=== PATIENT | female | born 1960 | race Caucasian/White ===

== ENCOUNTER 2024-03-18 23:13 | Inpatient (IN) | payer MEDICARE, OTHER, SELFPAY ==
[2024-03-18 20:17] VITALS: BP 92/58; BMI 27.7
[2024-03-18 20:41] LABS: Hematocrit 39.2 % (37.0-47.0); Hemoglobin 13.7 g/dL (12.0-16.0); Mean Corp Hgb Conc. 34.9 g/dL (33.0-37.0); Mean Corpuscular Hgb 31.7 pg (27.0-31.0); Mean Corpuscular Volume 90.7 fL (81.0-99.0); Mean Platelet Volume 9.7 fL (7.4-10.4); Platelet Count 221 10^3/uL (130-400); Red Blood Cell Count 4.32 10^6/uL (4.20-5.40); Red Cell Dist. Width 12.5 % (11.5-14.5); White Blood Cell Count 5.8 10^3/uL (4.8-10.8)
[2024-03-18 20:57] LABS: ALT (SGPT) 105 U/L (0-35); AST (SGOT) 188 U/L (14-36); Albumin 4.3 g/dl (3.5-5.0); Alkaline Phosphatase 120 U/L (38-126); Blood Urea Nitrogen 16 mg/dl (7-17); Calcium 9.5 mg/dl (8.4-10.2); Carbon Dioxide 25 mmol/L (22-30); Chloride 104 mmol/L (98-107); Estimated Creatinine Clearance 85 ml/min; Glucose 130 mg/dl (70-99); Sodium 137 mmol/L (135-145); Total Protein 6.8 g/dl (6.3-8.2); eGFR > 60.00
[2024-03-18 21:00] VITALS: BP 113/58
[2024-03-18 21:00] LABS: Alcohol None Detected
--- NOTE | 2024-03-18 21:00 | ED.GENMED ---
History of Present Illness
General
Chief Complaint: Fainting/Passed Out
Source: patient, spouse and ambulance crew
Exam Limitations: none
Time Seen by Provider: 03/18/24 20:38
Nursing documentation reviewed up to this point in time: agreed with
Travel History
Have you had any contact with someone who has COVID-19?: No
Do you have any symptoms of coronavirus? Fever > 100 degrees, chills, cough, shortness of breath, sore throat, loss of taste or smell, muscle aches, or headache?: No
History of Present Illness
History of Present Illness:
63-year-old female presents emergency department due to an onset of sharp epigastric pain radiating to her mid back. She then had a syncope episode, threw up twice and was sweaty.
Past History
Past History
ED Past Medical History: CAD, GERD and Other (Fainting episodes)
ED Past Surgical History: None
Social History
Tobacco: Former smoker
Alcohol: Occasional
Drug: None
Personal:
Living: with family
Review of Systems
Review of Systems
Allergies reviewed?: Yes
All Other Systems: Not applicable
Constitutional: Reports no symptoms
EENT: Reports no symptoms
Respiratory: Reports no symptoms
Cardiac: Reports syncope
ABD/GI: Reports abdominal pain and vomiting
: Reports no symptoms
Musculoskeletal: Reports no symptoms
Skin: Reports no symptoms
Neurological: Reports no symptoms
Endocrine: Reports no symptoms
Hematologic/Lymphatic: Reports no symptoms
Psychiatric: Reports no symptoms
Phy Exam
Physical Exam
Physical Exam:
Physical Exam
General: no apparent distress, not acutely ill
Neck: supple. no meningeal signs. normal posterior pharynx
Heart: s1/s2 regular rate and rhythm, no murmur. equal radial
pulses.
HEENT: Pupils equal round reactive to light, EOMI
Lungs: no acute respiratory distress. clear bilaterally
Abdomen: normal bowel sounds. Epigastric and right upper quadrant tenderness. no CVAT
Neuro: alert and oriented. no focal neurological deficits cranial nerves II through XII intact
Skin: no rash
Psychiatric: well kept. interactive and cooperative
Extremities: no edema. no calf tenderness. negative homans. good distal pulses
Course
Orders/Labs/Results
Orders:
Orders
03/18/24 20:16
EKG [Electrocardiogram (*1)] Urgent
Reason for Study: Syncope
03/18/24 20:17
EKG- Treatment ONCE
03/18/24 20:35
Alcohol Urgent
Complete Blood Count/No Diff Urgent
Comprehensive Metabolic Panel Urgent
Lipase Urgent
Comment: ADD ON
Troponin I Urgent
03/18/24 20:57
0.9% Sodium Chloride 1000 ml [Nss] 1,000 ml IV BOLUS
03/18/24 20:59
Add On- LAB Urgent
Tests Added?: lipase
US Abdomen Complete/Upper Urgent
Comment:
Reason For Exam: epigastric pain, vomiting
03/18/24 22:43
Ondansetron Injectable [Zofran] 4 mg IV NOW STA
03/18/24 22:50
Aztreonam [Azactam] 2,000 mg IV NOW STA
HYDROmorphone [Dilaudid] 0.5 mg IV NOW STA
MetroNIDAZOLE 500 MG/100 ML [Flagyl 500 mg] 100 ml IV NOW
03/18/24 22:56
Sterile Water [Sterile Water For Injection] 10 ml .ROUTE .[facility]
03/18/24 23:05
Vancomycin [Vancocin] 1,500 mg 0.9% Sodium Chloride [Nss] 20 ml 0.9% Sodium Chloride 250 ml [Nss] 250 ml IV NOW
03/18/24 23:12
0.9% Sodium Chloride 500 ml [Nss] 500 ml IV BOLUS
03/18/24 23:13
Admit/Transfer Patient As Directed
Co-Sign Provider:
Level of Care: Inpatient admission
Assign to:: Medical/Surgical
Physician / Group: Hospitalist
Diagnosis: Acute pancreatitis
Reason for Hospitalization: Acute pancreatitis
Expected length of stay greater than two midnights?: Yes
ELOS- Estimated Length of Stay in days: 3
I certify the patient meets the requirements for IP care: Yes
03/18/24 23:14
Code Status As Directed
Resuscitation Status: Full Code
03/18/24 23:15
0.9% Sodium Chloride 1000 ml [Nss] 1,000 ml IV 150 mls/hr
03/18/24 23:19
Add On- LAB Stat
Tests Added?: Lipids
03/18/24 23:26
Metoclopramide [Reglan] 5 mg IV Q8HPRN PRN
03/18/24 23:28
Add On- LAB Stat
Tests Added?: HEpB core Ag, hepB surf Ag, HepB surf Ab, HEpC Ab
Abnormal Lab Results
03/18/24
20:35
MCH 31.7 H pg
(27.0-31.0)
Glucose 130 H mg/dl
(70-99)
AST 188 H U/L
(14-36)
ALT 105 H U/L
(0-35)
Lipase 362 H U/L
(23-300)
03/18/24 20:35
03/18/24 20:35
Vital Signs
Initial and Last Documented VS:
Initial Vital Signs
Temp Pulse Resp BP Pulse Ox
97.7 F 61 12 92/58 95
03/18/24 20:17 03/18/24 20:17 03/18/24 20:17 03/18/24 20:17 03/18/24 20:17
Last Documented Vital Signs
Temp Pulse Resp BP Pulse Ox
97.7 F 59 15 112/66 95
03/18/24 20:17 03/18/24 21:15 03/18/24 21:15 03/18/24 21:13 03/18/24 21:31
MDM/Problems Addressed
Differential Diagnosis Includes:
Pancreatitis, biliary obstruction 4 viral female with pancreatitis, likely due to biliary obstruction. Admit to hospitalist. Azactam., vancomycin and metronidazole given due to patient's allergies. Patient with syncope episode, suspect vasovagal
cause.
Chronic conditions affecting care: CAD
Acute Exacerbation and/or Progression of Chronic Illness: CAD
*Radiology
Radiology exam reviewed: radiology read reviewed (Ultrasound shows severe dilation of intrahepatic biliary duct)
*Pulse Oximetry
Patient hypoxic: no
*EKG
Interpreted by ED Provider?: Yes
EKG Intrepretation Date: 03/18/24
EKG Intrepretation Time: 20:28
Interpretation: abnormal
Comparison EKG: no comparison EKG present
Heart Rate: 55
Rate: bradycardiac
Rhythm: sinus
[place]: normal axis
Interval: normal interval
QRS Pattern: normal QRS
Ischemia: no ischemia
*Core Mounter Interpretation
Rate: bradycardiac
Interpretation: abnormal
Heart Rate: 56
Rhythm: sinus
*Critical Care Note
Total Time (30-74mins, 75-104mins- exclusive of procedures): Not Applicable
Patient Management
Social determinants of health affecting care: Living situation
Discussion with other providers: Hospitalist
Escalation/DeEscalation of care consider admission/obs:
admit indicated
ED Attending Note
-
Portions of this chart may have been created with voice recognition software.� Occasional wrong word or��sound alike� substitutions may have occurred due to the inherent limitations of voice recognition software.
Discharge Plan
Departure
Patient Disposition: Admit
Date of Disposition: 03/18/24
Time of Disposition: 22:43
Admit to: IMU
Presentation/result/management discussed w/ accepting MD/DO: Hospitalist
Patient with high blood pressure during this ER visit?: No
Condition: Fair
Discharge Problem:
Pancreatitis due to biliary obstruction
Prescriptions:
No Action
atorvastatin 40 mg Tablet
40 mg PO HS
cholecalciferol (vitamin D3) [Vitamin D3] 25 mcg (1,000 unit) Tablet
25 mcg PO DAILY
calcium carbonate 500 mg calcium (1,250 mg) tablet
500 mg PO DAILY
omega-3 acid ethyl esters 1 gram capsule
1 g PO BID
estradiol [Yuvafem] 10 mcg tablet
10 mcg VAGINAL MOTH
Referrals:
PRIVATE,PHYSICIAN [Family Provider] -
Interventions
Interventions:
*Risk Screen - Suicide Last Done: 03/18/24 20:17
*General Assessment Last Done: 03/18/24 20:17
*Neglect/Abuse Screening Last Done: 03/18/24 20:17
*ED COVID-19 Vaccine History Last Done: 03/18/24 20:17
ED- Cardiac Assessment Last Done: 03/18/24 20:33
ED- Neurological Assessment Last Done: 03/18/24 20:33
Discharge Date and Time
Print Language: VINCENTIAN
[2024-03-18] MEDS: NSS 1000 IV (21:05)
[2024-03-18 21:08] LABS: Troponin I < 0.012 ng/ml
[2024-03-18 21:13] VITALS: BP 112/66
[2024-03-18 21:16] LABS: Lipase 362 U/L (23-300)
[2024-03-18] MEDS: ZOFRAN 4 MG IV (22:49)
[2024-03-18] MEDS: DILAUDID 0.5 MG IV (22:59)
[2024-03-18] MEDS: FLAGYL 500 MG 100 IV (23:04)
[2024-03-18] MEDS: AZACTAM 2000 MG IV (23:04)
--- NOTE | 2024-03-18 23:20 | HPS.HSE ---
Family Physician
-
Family Physician: PHYSICIAN PRIVATE
Chief Complaint
-
abdominal pain, nausea, vomiting
History of Present Illness
63F with PMHx of HLD came with acute epigastric pain with sudden onset radiating to the back. Patient was on wedding today and had some alcohol before onset of the symptoms. SHe is not a daily drinker. US showed intra and extrahepatic ducts dilation
with s/p cholecystectomy and elevated lipase on labs
Medical History
Past Medical History
Past Medical History: Reports Other
Additional Past Medical History:
See HPI
Past Surgical History: Reports Other
Additional Past Surgical History:
See HPI
Social History
Tobacco: Non-smoker
Alcohol: Occasional
Drug: None
Family History
Family History: Not pertinent
Allergies / Home Medications
Allergies reflects when Allergies were last updated in [employer].
Home Medications with original date entered in [employer]
Allergy/Medication List:
Allergies
Allergy/AdvReac Type Severity Reaction Status Date / Time
adhesive Allergy Rash Verified 03/18/24 20:29
amoxicillin [From Augmentin] Allergy Itching Verified 03/18/24 20:29
ciprofloxacin [From Cipro] Allergy Rash Verified 03/18/24 20:29
clavulanic acid Allergy Itching Verified 03/18/24 20:29
[From Augmentin]
Home Medications
atorvastatin 40 mg tablet 40 mg PO HS 03/18/24
calcium carbonate 500 mg PO DAILY 03/18/24
cholecalciferol (vitamin D3) 25 mcg (1,000 unit) tablet (Vitamin D3) 25 mcg PO DAILY 03/18/24
estradiol 10 mcg vaginal tablet (Yuvafem) 10 mcg vaginal MOTH 03/18/24
omega-3 acid ethyl esters 1 gram capsule 1 g PO BID 03/18/24
Review of Systems
-
A 12 point ROS was completed and negative except as noted: Yes
Abdomen/GI: Reports See HPI
Physical Exam
Vital Signs
Vital Signs
Temp Pulse Resp BP Pulse Ox
97.7 F 59 15 112/66 95
03/18/24 20:17 03/18/24 21:15 03/18/24 21:15 03/18/24 21:13 03/18/24 21:31
Physical Exam
General: Appears in Distress and Pain
HEENT: Anicteric
Respiratory: Clear; No Wheezes, Rales or Rhonchi
Cardiac: S1/S2 and Regular Rhythm
GI: Tender
Genito-urinary: No costovertebral tender
Skin: Warm
Neuro: Awake, Alert, Oriented and AO x 3
Hematologic/Lymphatic: No Lymphadenopathy
Psych: Calm
Laboratory Results
-
03/18/24 20:35
03/18/24 20:35
Laboratory Results
Total Bilirubin 1.0 mg/dl (0.2-1.3) 03/18/24 20:35
AST 188 U/L (14-36) H 03/18/24 20:35
ALT 105 U/L (0-35) H 03/18/24 20:35
Alkaline Phosphatase 120 U/L (38-126) 03/18/24 20:35
Troponin I < 0.012 ng/ml 03/18/24 20:35
Lipase 362 U/L (23-300) H 03/18/24 20:35
Data Reviewed
-
Ultrasound: Report Reviewed by me
Lab Data: Labs Reviewed by me
Impression/Plan
-
IMPRESSION/PLAN:
#Acute alcoholic pancreatitis
#Concern for CBD stone cannot r/o early cholangitis
#Mild transaminitis
Check hepatitis profile
Check triglycerides level
Ca WNL
IVF aggressive hydration
pain mgmt
NPO and advance diet when tolerated
Zofran/Reglan PRN
follow LFT
GI consult
MRCP
Ceftriaxone/Flagyl (since allergic to penicillins)
DVT ppx hep
Full code
I have spent at least 78min preparing admission, communication with family and direct patient care
[2024-03-18 23:45] VITALS: BP 117/51
[2024-03-19] VITALS: BP 108/55
[2024-03-19] MEDS: VANCOCIN 300 MG IV (00:06)
[2024-03-19] MEDS: NSS 500 IV (00:06)
[2024-03-19] MEDS: VANCOCIN 300 ML IV (00:06)
[2024-03-19 00:10] VITALS: BP 108/55
[2024-03-19 00:16] LABS: HDL Cholesterol 58 mg/dl; LDL Cholesterol, Calculated 42 mg/dl; Total Cholesterol 123 mg/dl (50-199); Triglyceride 116 mg/dl (10-149); Very Low Density Lipoprotein 23 mg/dl (0-30)
[2024-03-19] MEDS: REGLAN 5 MG IV ×3 (00:47→22:44)
[2024-03-19 01:16] VITALS: BP 112/53
[2024-03-19] MEDS: HEPARIN 5000 UNITS SC ×3 (01:28→16:13)
[2024-03-19] MEDS: NSS 1000 IV (01:32)
[2024-03-19] MEDS: ZOFRAN 4 MG IV ×2 (03:07→13:20)
[2024-03-19 03:43] LABS: Hepatitis B Surface Antigen Negative (Negative)
[2024-03-19 04:00] LABS: Hepatitis B Surface Antibody Negative; Hepatitis C Antibody Negative (Negative)
[2024-03-19] MEDS: STERILE WATER FOR INJECTION 20 ML IV (05:19)
[2024-03-19] MEDS: ROCEPHIN 2000 MG IV (05:20)
[2024-03-19] MEDS: FLAGYL 500 MG 100 IV ×3 (05:24→21:09)
[2024-03-19 06:00] VITALS: BMI 26.2
[2024-03-19 07:40] VITALS: BP 93/52
[2024-03-19] MEDS: DILAUDID 0.5 MG IV ×3 (08:07→22:41)
[2024-03-19 08:16] LABS: % Basophils 0.1 % (0-2); % Eosinophils 0.1 % (0-6); % Immature Granulocytes 0.3 % (0-0.5); % Monocytes 2.7 % (1.7-9.3); % Neutrophils 93.8 % (42.2-75.2); Absolute Lymphocytes 0.3 10^3/uL (1.2-3.4); Absolute Monocytes 0.3 10^3/uL (0.1-0.6); Absolute Neutrophils 9.5 10^3/uL (1.4-6.5); Hematocrit 39.3 % (37.0-47.0); Hemoglobin 12.7 g/dL (12.0-16.0); Mean Corp Hgb Conc. 32.3 g/dL (33.0-37.0); Mean Corpuscular Hgb 31.5 pg (27.0-31.0); Mean Corpuscular Volume 97.5 fL (81.0-99.0); Mean Platelet Volume 10.4 fL (7.4-10.4); Nucleated Red Blood Cells % 0 %; Platelet Count 156 10^3/uL (130-400); Red Blood Cell Count 4.03 10^6/uL (4.20-5.40); Red Cell Dist. Width 12.8 % (11.5-14.5); White Blood Cell Count 10.1 10^3/uL (4.8-10.8)
[2024-03-19 08:45] LABS: Albumin 3.4 g/dl (3.5-5.0); Alkaline Phosphatase 189 U/L (38-126); Blood Urea Nitrogen 20 mg/dl (7-17); Calcium 8.2 mg/dl (8.4-10.2); Carbon Dioxide 22 mmol/L (22-30); Chloride 110 mmol/L (98-107); Estimated Creatinine Clearance 63 ml/min; Glucose 133 mg/dl (70-99); Potassium 3.4 mmol/L (3.5-5.1); Sodium 137 mmol/L (135-145); Total Bilirubin 3.3 mg/dl (0.2-1.3); Total Protein 5.7 g/dl (6.3-8.2); eGFR > 60.00
[2024-03-19] MEDS: KCL 270 MEQ IV (09:12)
[2024-03-19 09:45] LABS: AST (SGOT) 1179 U/L (14-36)
[2024-03-19 09:46] LABS: ALT (SGPT) 1021 U/L (0-35); Lipase 541 U/L (23-300)
[2024-03-19] MEDS: NSS IV ×2 (09:53→10:30)
--- NOTE | 2024-03-19 09:59 | CM ---
Reviewed the chart notes and spoke with the patient at the bedside. The patient resides with her spouse in a two story home with no steps to enter. The patient reports no DME/VN/SNF in the past. CM continues to be available to patient/family and
is monitoring medical plan for needs at discharge.
Plan: Discharge to home when medically stable.
[2024-03-19] MEDS: LR 1000 IV ×3 (10:02→21:15)
--- NOTE | 2024-03-19 11:52 | CON.GI ---
Consultation
-
Date/Time Consultation Requested: 03/18/2022
Date/Time Consultation Performed: 03/19/2022
Requesting Provider: Hospitalist
Performing Provider: Josy VASQUES
Reason for Consultation: Pancreatitis
Medical History
Chief Complaint / HPI
Chief Complaint: Abdominal pain/nausea/vomiting
History of Present Illness:
[id number] with history of dyslipidemia admitted to ED with sudden onset epigastric abdominal pain radiating to the back with associated nausea and vomiting. Patient lives in [facility] and was attending a wedding locally in
[place]. In the wedding she claimed she drank 1 drink of vodka and a beer. Her symptoms started after that. She was feeling dizzy with abdominal pain. 1 prior episode of pancreatitis 20 years back. Patient had a history of cholecystectomy
many years back and also underwent multiple ERCP for choledocholithiasis after that. Last ERCP over 5 years ago at outside facility. No records available.
Denies regular alcohol consumption or abuse. No recent medication change.
Past Medical History
Past Medical History: Hypercholesterolemia and Other
Past Surgical History: Cholecystectomy
Social History
Tobacco: Non-Smoker
Alcohol: Occasional
Drug: None
Allergies / Home Medications
Allergy/AdvReac Type Severity Reaction Status Date / Time
adhesive Allergy Rash Verified 03/18/24 20:29
amoxicillin [From Augmentin] Allergy Itching Verified 03/18/24 20:29
ciprofloxacin [From Cipro] Allergy Rash Verified 03/18/24 20:29
clavulanic acid Allergy Itching Verified 03/18/24 20:29
[From Augmentin]
�Medication �Instructions �Recorded
atorvastatin 40 mg tablet 40 mg PO HS 03/18/24
calcium carbonate 500 mg PO DAILY 03/18/24
cholecalciferol (vitamin D3) 25 25 mcg PO DAILY 03/18/24
mcg (1,000 unit) tablet (Vitamin
D3)
estradiol 10 mcg vaginal tablet 10 mcg vaginal MOTH 03/18/24
(Yuvafem)
omega-3 acid ethyl esters 1 gram 1 g PO BID 03/18/24
capsule
Review of Systems
-
All other systems: A 12 pt ROS was Negative except as stated above in HPI
Vital Signs
Temp Pulse Resp BP Pulse Ox
99.0 F 103 20 93/52 96
03/19/24 03:07 03/19/24 07:40 03/19/24 07:40 03/19/24 07:40 03/19/24 07:40
Physical Exam
Exam
General: Well Developed and No Apparent Distress
Respiratory: Clear
Cardiac: S1/S2
GI: Soft, Non Distended and Tender (Epigastric tenderness without guarding)
Neuro: AO x 3
Results
WBC 10.1 10^3/uL (4.8-10.8) 03/19/24 04:50
Hgb 12.7 g/dL (12.0-16.0) 03/19/24 04:50
Hct 39.3 % (37.0-47.0) 03/19/24 04:50
MCV 97.5 fL (81.0-99.0) 03/19/24 04:50
Plt Count 156 10^3/uL (130-400) D 03/19/24 04:50
Absolute Neuts (auto) 9.5 10^3/uL (1.4-6.5) H 03/19/24 04:50
Sodium 137 mmol/L (135-145) 03/19/24 04:50
Potassium 3.4 mmol/L (3.5-5.1) L 03/19/24 04:50
Chloride 110 mmol/L (98-107) H 03/19/24 04:50
Carbon Dioxide 22 mmol/L (22-30) 03/19/24 04:50
BUN 20 mg/dl (7-17) H 03/19/24 04:50
Creatinine 0.7 mg/dL (0.6-1.0) 03/19/24 04:50
Calcium 8.2 mg/dl (8.4-10.2) L 03/19/24 04:50
Total Bilirubin 3.3 mg/dl (0.2-1.3) H D 03/19/24 04:50
AST 1179 U/L (14-36) H* 03/19/24 04:50
ALT 1021 U/L (0-35) H* 03/19/24 04:50
Alkaline Phosphatase 189 U/L (38-126) H 03/19/24 04:50
Lipase 541 U/L (23-300) H 03/19/24 04:50
Hep Bs Antibody Cancelled 03/19/24 06:00
Hepatitis C Antibody Cancelled 03/19/24 06:00
Diagnostic Image Results:
Ultrasound abdomen 03/18/2024
IMPRESSION: Prior cholecystectomy
Severe intra and extrahepatic bile dilatation. More than expected postcholecystectomy. A distal CBD stone or pancreatic mass cannot be excluded. MRCP recommended
Hepatic fatty infiltration.
Nonvisualization of the pancreatic tail.
Small simple left renal cyst.
Prior GI Procedures:
EGD: Unable to recall
Colonoscopy: Patient is scheduled to have colonoscopy with her GI this month. Unable to recall prior findings
Assessment / Plan
-
63-year-old female with history of dyslipidemia admitted with epigastric abdominal pain/nausea/vomiting-- happened at a wedding after alcohol consumption. prior history of choledocholithiasis requiring multiple ERCPs/stent placement in the past.
No records available. History of cholecystectomy.
Labs from ED WBC normal. Hemoglobin 13.7. Platelets 221. Although initially AST 188/ALT 105 with normal alkaline phosphatase/total bilirubin. Repeat labs this morning AST 1179/ALT 1021/alkaline phosphatase 189/total bilirubin 3.3. Lipase 541.
ultrasound abdomen was performed in ED showing - dilated intra and extrahepatic bile duct. Postcholecystectomy. No CT was performed.
-- Acute pancreatitis--based on epigastric abdominal pain/elevated lipase. Likely etiology gallstone versus alcohol. Suspicion for gallstone is high considering her prior history of choledocholithiasis and her current liver test showing
cholestatic pattern.
plan
N.p.o.
pain management as per medical team
IV lactated Ringer's 150 cc / hr
Will order MRI/ MRCP for further evaluation of bile duct/CBD stone/pancreatitis
Check triglyceride level
Will check hepatitis panel
Total Time Spent with Patient (in minutes): 55
-
-
Thank you for consultation and allowing me to participate in the patient's care. Please call the behavioral health consultant GI physician during the after hours with any questions or concerns.
--- NOTE | 2024-03-19 12:46 | W.PN.HOSP.TC ---
Today's Communication/Plan
-
ivf
pain control
abx
f/u cultures
mrcp
triglycerides
Assessment / Plan
Assessment / Plan
Physical Exam
General: Appears in Distress and Pain
HEENT: Anicteric
Respiratory: Clear; No Wheezes, Rales or Rhonchi
Cardiac: S1/S2 and Regular Rhythm
GI: Tender
Genito-urinary: No costovertebral tender
Skin: Warm
Neuro: Awake, Alert, Oriented and AO x 3
Hematologic/Lymphatic: No Lymphadenopathy
Psych: Calm
#Severe Sepsis
-unclear source - possibly 2/2 to early cholangitis v SIRS due to pancreatitis
-see plan below
-cont abx
-f/u cultures; order blood cultures since not obtained overnight
#Acute pancreatitis
#Mild transaminitis
-alcohol v gallstone
-Hep panel neg
-Check triglycerides level
-IVF aggressive hydration
-pain mgmt
-NPO and advance diet when tolerated
-Zofran/Reglan PRN
-follow LFT
-GI consult
-MRCP
-Ceftriaxone/Flagyl (since allergic to penicillins)
DVT ppx hep
Full code
Total time spent on today's encounter was 50 minutes which included time spent in counseling the patient/family regarding diagnosis and treatment plan as listed above, goals of care, and symptom management. Case was discussed with nursing staff,
specialists, and care coordinators/case management. All labs and imaging personally reviewed by me. Remainder the time spent in detailed review of previous records, lab data, imaging, and other medical provider documentation.
Anticipated Discharge: > 48 hours
Subjective/Interval History
-
Date of Service: March 19, 2024
still having moderate pain
Objective Data
-
Labs:
Laboratory Results
03/19/24
04:50
WBC 10.1
Hgb 12.7
Hct 39.3
Plt Count 156 D
Sodium 137
Potassium 3.4 L
Chloride 110 H
Carbon Dioxide 22
BUN 20 H
Creatinine 0.7
Glucose 133 H
Calcium 8.2 L
Total Bilirubin 3.3 H D
AST 1179 H*
ALT 1021 H*
Alkaline Phosphatase 189 H
Vital Signs:
Vital Signs
Temp Pulse Resp BP Pulse Ox
99.0 F 103 20 93/52 96
03/19/24 03:07 03/19/24 07:40 03/19/24 07:40 03/19/24 07:40 03/19/24 07:40
I&O
03/18/24 03/19/24 03/20/24
06:59 06:59 06:59
Intake Total 900 / 900
Balance 900 / 900
Review of Systems
-
History Source: Patient
All other systems: Not reviewed unless documented
Data Reviewed
-
Ultrasound: Image personally visualized and interpreted and Report Reviewed by me
Labs: Labs Reviewed by me
--- NOTE | 2024-03-19 14:40 | PTCARENOTE ---
PT WITH L AC INFILTRATE, +1-2 EDEMA. PERIPHERAL LINE DC'D, PLACED NEW PERIPHERAL LINE AT THIS TIME. HEAT APPLIED, ARM ELEVATED, WILL CONT TO MONITOR
[2024-03-19 14:43] VITALS: BP 107/53
[2024-03-19 23:46] VITALS: BP 97/60
[2024-03-20] MEDS: HEPARIN 5000 UNITS SC ×3 (00:31→15:54)
[2024-03-20] MEDS: LR 1000 IV ×3 (02:28→20:32)
[2024-03-20] MEDS: STERILE WATER FOR INJECTION 20 ML IV (05:31)
[2024-03-20] MEDS: ROCEPHIN 2000 MG IV (05:31)
[2024-03-20] MEDS: FLAGYL 500 MG 100 IV ×3 (05:31→22:02)
[2024-03-20] MEDS: ZOFRAN 4 MG IV ×2 (06:14→13:11)
[2024-03-20] MEDS: REGLAN 5 MG IV (06:51)
[2024-03-20 07:40] VITALS: BP 119/58
[2024-03-20] MEDS: LR IV ×3 (07:42→20:32)
--- NOTE | 2024-03-20 08:34 | PTCARENOTE ---
FOLLOW UP ASSESSMENT OF L AC INFILTRATE FROM 03/19. NO NOTED SWELLING, NO TENDERNESS. RESOLVED. PT DENIES PAIN AT SITE. RESTING
[2024-03-20 09:15] LABS: Hematocrit 36.7 % (37.0-47.0); Hemoglobin 12.1 g/dL (12.0-16.0); Mean Corpuscular Hgb 31.3 pg (27.0-31.0); Mean Corpuscular Volume 95.1 fL (81.0-99.0); Mean Platelet Volume 10.6 fL (7.4-10.4); Platelet Count 152 10^3/uL (130-400); Red Blood Cell Count 3.86 10^6/uL (4.20-5.40); Red Cell Dist. Width 13.5 % (11.5-14.5)
[2024-03-20 10:03] LABS: ALT (SGPT) 1048 U/L (0-35); AST (SGOT) 659 U/L (14-36); Albumin 3.1 g/dl (3.5-5.0); Alkaline Phosphatase 157 U/L (38-126); Blood Urea Nitrogen 21 mg/dl (7-17); Calcium 8.3 mg/dl (8.4-10.2); Carbon Dioxide 22 mmol/L (22-30); Chloride 109 mmol/L (98-107); Estimated Creatinine Clearance 74 ml/min; Glucose 124 mg/dl (70-99); Potassium 4.2 mmol/L (3.5-5.1); Sodium 140 mmol/L (135-145); Total Bilirubin 3.3 mg/dl (0.2-1.3); Total Protein 5.4 g/dl (6.3-8.2); eGFR > 60.00
--- NOTE | 2024-03-20 10:59 | W.PN.HOSP.TC ---
Today's Communication/Plan
-
cont empiric abx, f/u cultures
reduce fluid rate to 150cc/hr
ADAT
Pain control
Gi recs
Assessment / Plan
Assessment / Plan
Physical Exam
General: Appears in Distress and Pain
HEENT: Anicteric
Respiratory: Clear; No Wheezes, Rales or Rhonchi
Cardiac: S1/S2 and Regular Rhythm
GI: Tender
Genito-urinary: No costovertebral tender
Skin: Warm
Neuro: Awake, Alert, Oriented and AO x 3
Hematologic/Lymphatic: No Lymphadenopathy
Psych: Calm
#Severe Sepsis
-MRCP unremarkable although febrile episode: Possibly 2/2 to pancreatitis
-unclear source of any infectious etiology at this time
-MRCP unremarkable for choledocholithiasis additionally
-see plan below
-cont empiric abx
-f/u cultures; order blood cultures since not obtained overnight of admission
#Acute pancreatitis
#Mild transaminitis
-lfts trending down
-most likely etoh related; MRCP without choledocholithiasis
-Hep panel neg
-triglycerides level : 116
-IVF hydration
-pain mgmt
-NPO and advance diet as tolerated
-Zofran/Reglan PRN
-follow LFT
-GI consult
DVT ppx hep
Full code
Total time spent on today's encounter was 52 minutes which included time spent in counseling the patient/family regarding diagnosis and treatment plan as listed above, goals of care, and symptom management. Case was discussed with nursing staff,
specialists, and care coordinators/case management. All labs and imaging personally reviewed by me. Remainder the time spent in detailed review of previous records, lab data, imaging, and other medical provider documentation.
Anticipated Discharge: > 48 hours
Subjective/Interval History
-
Date of Service: March 20, 2024
No acute events
Objective Data
-
Labs:
Laboratory Results
03/20/24
08:31
WBC 19.0 H
Hgb 12.1
Hct 36.7 L
Plt Count 152
Sodium 140
Potassium 4.2
Chloride 109 H
Carbon Dioxide 22
BUN 21 H
Creatinine 0.6
Glucose 124 H
Calcium 8.3 L
Total Bilirubin 3.3 H
AST 659 H*
ALT 1048 H*
Alkaline Phosphatase 157 H
Vital Signs:
Vital Signs
Temp Pulse Resp BP Pulse Ox
98.1 F 82 16 119/58 95
03/20/24 07:40 03/20/24 07:40 03/20/24 07:40 03/20/24 07:40 03/20/24 08:56
I&O
03/19/24 03/20/24 03/21/24
06:59 06:59 06:59
Intake Total 900 / 900 5710 / 5710
Balance 900 / 900 5710 / 5710
Review of Systems
-
History Source: Patient
All other systems: Not reviewed unless documented
Data Reviewed
-
Ultrasound: Image personally visualized and interpreted and Report Reviewed by me
MRI: Image personally visualized and interpreted and Report Reviewed by me
Labs: Labs Reviewed by me
--- NOTE | 2024-03-20 12:17 | W.PN.GI.CBS2 ---
Today's Communication / Plan
-
Continue supportive care
Follow-up blood culture
Assessment / Plan
-
63-year-old female with history of dyslipidemia admitted with epigastric abdominal pain/nausea/vomiting-- happened at a wedding after alcohol consumption. prior history of choledocholithiasis requiring multiple ERCPs/stent placement in the past.
No records available. History of cholecystectomy.
Labs from ED WBC normal. Hemoglobin 13.7. Platelets 221. Although initially AST 188/ALT 105 with normal alkaline phosphatase/total bilirubin. Repeat labs this morning AST 1179/ALT 1021/alkaline phosphatase 189/total bilirubin 3.3. Lipase 541.
ultrasound abdomen was performed in ED showing - dilated intra and extrahepatic bile duct. Postcholecystectomy. No CT was performed.
-- Acute pancreatitis--based on epigastric abdominal pain/elevated lipase/ MRI abd showing inflammatory fat stranding in the upper abdomen with mild ascites. Likely etiology gallstone versus alcohol. Suspicion for gallstone is high considering her
prior history of choledocholithiasis and her current liver test showing cholestatic pattern. Triglyceride normal
-- Elevated liver test AST 659/ALT 1048/alkaline phosphatase 157/total bilirubin 3.3
-- Leukocytosis
MRCP abdomen 03/20/2024
IMPRESSION:
1. No MRCP evidence for choledocholithiasis
2. Bile duct dilatation may be secondary to the previous cholecystectomy.
3. Mild ascites and inflammatory fat stranding in the upper abdomen most in keeping with the provided history of pancreatitis.
4. Colonic diverticulosis.
5. Small bilateral pleural effusions and bibasilar atelectasis.
plan
N.p.o.
Follow-up blood culture
Continue empirical antibiotic started by medical team
pain management as per medical team
IV lactated Ringer's 150 cc / hr
Will check hepatitis panel
MRCP no clear evidence of choledocholithiasis. Will discuss with Dr. Roman tomorrow since liver tests were significantly elevated with dilated CBD - for possible EUS
Will follow
Total Time Spent with Patient (in minutes): 35
Subjective
Subjective
Date of Service: March 20, 2024
Continues to have abdominal pain but better. Nausea sensation. Fever spike yesterday+
Objective
Data Reviewed
Laboratory Data:
Laboratory Results
03/20/24 08:31
03/20/24 08:31
Laboratory Results
Total Bilirubin 3.3 mg/dl (0.2-1.3) H 03/20/24 08:31
AST 659 U/L (14-36) H* 03/20/24 08:31
ALT 1048 U/L (0-35) H* 03/20/24 08:31
Alkaline Phosphatase 157 U/L (38-126) H 03/20/24 08:31
Lipase 541 U/L (23-300) H 03/19/24 04:50
Vital Signs and I&O:
Vital Signs
Temp Pulse Resp BP Pulse Ox
98.1 F 82 16 119/58 95
03/20/24 07:40 03/20/24 07:40 03/20/24 07:40 03/20/24 07:40 03/20/24 08:56
I&O
03/19/24 03/20/24 03/21/24
06:59 06:59 06:59
Intake Total 900 / 900 5710 / 5710
Balance 900 / 900 5710 / 5710
Physical Exam
Physical Exam
GI: Soft, Non Distended and Tender (Epigastric tenderness)
[2024-03-20] MEDS: MORPHINE SULFATE 2 MG IV (13:11)
[2024-03-20 15:35] VITALS: BP 115/63
--- NOTE | 2024-03-20 16:05 | PTCARENOTE ---
pt noted to have bruising around lower abdomen from Heparin injection BID, pt made aware and passed on report.
[2024-03-20] MEDS: COMPAZINE 5 MG IV (20:34)
[2024-03-20 23:00] VITALS: BP 138/79
[2024-03-21] VITALS (12 sets, daily range): BP systolic 118–148; BP diastolic 67–85
--- NOTE | 2024-03-21 00:02 | W.PN.UPDATE ---
Update Note
Progress Note Update
Patient complained of recurrent headache, patient on estradiol that causing her headache, she is using Tylenol at home. For elevated LFTs will avoid Tylenol and will give one time order of Reglan and Benadryl 25mg IV.
[2024-03-21] MEDS: BENADRYL 25 MG IV (00:14)
[2024-03-21] MEDS: HEPARIN 5000 UNITS SC ×4 (00:16→23:31)
[2024-03-21] MEDS: REGLAN 10 MG IV (00:16)
[2024-03-21] MEDS: LR 1000 IV ×2 (03:22→10:09)
[2024-03-21] MEDS: FLAGYL 500 MG 100 IV ×3 (05:37→21:40)
[2024-03-21] MEDS: ROCEPHIN 2000 MG IV (05:37)
[2024-03-21] MEDS: STERILE WATER FOR INJECTION 20 ML IV (05:37)
[2024-03-21] MEDS: ZOFRAN 4 MG IV (05:53)
[2024-03-21 07:33] LABS: Hematocrit 35.2 % (37.0-47.0); Hemoglobin 11.5 g/dL (12.0-16.0); Mean Corp Hgb Conc. 32.7 g/dL (33.0-37.0); Mean Corpuscular Hgb 31.1 pg (27.0-31.0); Mean Corpuscular Volume 95.1 fL (81.0-99.0); Mean Platelet Volume 11.1 fL (7.4-10.4); Platelet Count 132 10^3/uL (130-400); Red Cell Dist. Width 13.1 % (11.5-14.5)
[2024-03-21 08:00] LABS: AST (SGOT) 469 U/L (14-36); Albumin 2.9 g/dl (3.5-5.0); Alkaline Phosphatase 173 U/L (38-126); Blood Urea Nitrogen 18 mg/dl (7-17); Calcium 8.2 mg/dl (8.4-10.2); Carbon Dioxide 24 mmol/L (22-30); Chloride 109 mmol/L (98-107); Estimated Creatinine Clearance 74 ml/min; Glucose 99 mg/dl (70-99); Lipase 213 U/L (23-300); Potassium 4.1 mmol/L (3.5-5.1); Sodium 139 mmol/L (135-145); Total Bilirubin 1.8 mg/dl (0.2-1.3); Total Protein 5.2 g/dl (6.3-8.2); eGFR > 60.00
[2024-03-21 08:16] LABS: ALT (SGPT) 877 U/L (0-35)
--- NOTE | 2024-03-21 08:40 | W.PN.UPDATE ---
Update Note
Progress Note Update
reviewed with Dr. Roman for EUS with possible ERCP today. update pt, spouse and nursing staff.
--- NOTE | 2024-03-21 12:20 | W.PN.HOSP.TC ---
Today's Communication/Plan
-
Chest x-ray today
Continue with antibiotics
Continue with n.p.o.
EUS and ERCP today.
Assessment / Plan
Assessment / Plan
#Severe Sepsis
SIRS from severe Pancreatitis versus biliary sepsis.
Afebrile, improving leukocytosis
MRCP shows ductal dilatation but no stone; status post prior cholecystectomy
continue with empirical antibiotic biliary ductal status is known
#Acute pancreatitis
# cholestatic hepatitis picture
-lfts trending down
- MRCP without choledocholithiasis
-Hep panel neg
-triglycerides level : 116
in view of significant intra and extrahepatic ductal dilatation going for endoscopic ultrasound and may be ERCP today.
# Hypoxia-patient has cough but not short of breath. Known history of COPD but no reactive airway disease currently. She has decreased breath sounds in the right base. Rule out pleural effusion. Check her weight. Clinically no lower extremity
edema no JVD. No prior history of CHF. Encourage incentive spirometry and out of bed to the chair.
DVT ppx hep
Full code
DW GI today about plan
DW at bedside about today's plan
Total time spent on today's encounter was 52 minutes which included time spent in counseling the patient/family regarding diagnosis and treatment plan as listed above, goals of care, and symptom management. Case was discussed with nursing staff,
specialists, . All labs and imaging personally reviewed by me. Remainder the time spent in detailed review of previous records, lab data, imaging, and other medical provider documentation.
Anticipated Discharge: > 48 hours
Subjective/Interval History
-
Date of Service: March 21, 2024
Her abdominal pain is improving.
No nausea vomiting.
No fever or chills.
Complains of a cough which is mostly dry and also a headache. Headache is generalized. No specific pattern. No prior history of primary headaches. Normally drinks 2 cups of coffee in the morning. No neck stiffness.
Denies any shortness of breath at rest. She is requiring oxygen. She got a history of COPD but not on any oxygen at home nor any inhaler or nebulizer treatments. Quit smoking 9 years ago.
Objective Data
-
Labs:
Laboratory Results
03/21/24
06:23
WBC 15.0 H
Hgb 11.5 L
Hct 35.2 L
Plt Count 132
Sodium 139
Potassium 4.1
Chloride 109 H
Carbon Dioxide 24
BUN 18 H
Creatinine 0.5 L
Glucose 99
Calcium 8.2 L
Total Bilirubin 1.8 H D
AST 469 H
ALT 877 H*
Alkaline Phosphatase 173 H
Vital Signs:
Vital Signs
Temp Pulse Resp BP Pulse Ox
98.8 F 80 20 135/79 98
03/21/24 08:56 03/21/24 08:56 03/21/24 08:56 03/21/24 08:56 03/21/24 08:56
I&O
03/20/24 03/21/24 03/22/24
06:59 06:59 06:59
Intake Total 5710 / 5710 1100 / 1100 1999
Balance 5710 / 5710 1100 / 1100 1999
Review of Systems
-
EENT: Denies Sore Throat
Cardiac: Denies Chest Pain or Palpitations
Neuro: Denies Dizzy
Physical Exam
-
General: No Apparent Distress
HEENT: Moist Mucous Membranes
Respiratory: Decreased Breath Sounds (right base); Negative Rales or Crackles
Cardiac: Regular Rhythm and S1/S2
GI: Soft, Nondistended, Normal Bowel Sounds and Tender (mild in epigastric)
Musculoskeletal: No Edema
Neuro: AO x 3
Psych: Calm
Data Reviewed
-
Labs: Labs Reviewed by me
--- NOTE | 2024-03-21 12:37 | VATNOTE ---
left6 AC infiltrate from 03/19 resolved now. NO pain.
--- NOTE | 2024-03-21 15:05 | CM ---
Reviewed the chart notes. Patient remains NPO. Per notes, plan is for EUS and ERCP today. CM continues to be available to patient/family and is monitoring medical plan for needs at discharge.
Plan: Discharge to home when medically stable. No needs anticipated at this time.
--- NOTE | 2024-03-21 17:13 | SUR.PHASEI ---
Patient from GI lab with low 02 sats on arrival to PACU. Patient has oxy mask in place 02 % 60-65, switched to simple mask at 15 /l/min. O2 sats improved 95%. Patient is able to take a deep breath and cough. Will Monitor, Nikia Ashford RN BSN.
[2024-03-21] MEDS: LR IV (18:41)
[2024-03-21 19:54] LABS: Hepatitis B Core Ab, Total Negative (Negative)
[2024-03-22 03:08] VITALS: BP 130/77
[2024-03-22 06:00] VITALS: BMI 28.5
[2024-03-22] MEDS: ROCEPHIN 2000 MG IV (06:10)
[2024-03-22] MEDS: STERILE WATER FOR INJECTION 20 ML IV (06:10)
[2024-03-22] MEDS: FLAGYL 500 MG 100 IV ×3 (06:10→22:44)
[2024-03-22 06:40] LABS: Hematocrit 34.5 % (37.0-47.0); Mean Corp Hgb Conc. 34.8 g/dL (33.0-37.0); Mean Corpuscular Hgb 31.9 pg (27.0-31.0); Mean Corpuscular Volume 91.8 fL (81.0-99.0); Mean Platelet Volume 10.6 fL (7.4-10.4); Platelet Count 149 10^3/uL (130-400); Red Blood Cell Count 3.76 10^6/uL (4.20-5.40); White Blood Cell Count 9.8 10^3/uL (4.8-10.8)
--- NOTE | 2024-03-22 07:01 | W.PN.GI.CBS2 ---
Addendum entered and electronically signed by Fifi Cooper DO 03/22/24 11:39:
I saw and examined the patient.
The [employer] or PA's note was reviewed and I agree with the note.
Comment: Patient is s/p EUS/ERCP yesterday with removal of small stone, suspect she passed a larger stone, given her clinical picture and degree of LFT elevation vs. multifactorial. Clinically, she has improved, tolerating clear liquid diet. Agree
with advancing to low fat/low residue. LFTs improving. Continued on abx. Will have her follow-up in the office as an outpatient. GI will sign off, please call with questions.
Original Note:
Today's Communication / Plan
-
s/p EUS/ERCP with small stone removal but likely not cause of symptoms ? passed larger stone vs other no other pathology noted on EUS
improved LFT trend
clear diet will advance diet to low fat
remains on empirical antibiotic started by medical team
pain management as per medical team
hepatitis panel neg
updated family at bedside
Assessment / Plan
-
63-year-old female with history of dyslipidemia admitted with epigastric abdominal pain/nausea/vomiting-- happened at a wedding after alcohol consumption. prior history of choledocholithiasis requiring multiple ERCPs/stent placement in the past
over 20 years ago in [facility] and possible [facility]. No records available. History of cholecystectomy. Labs after admission with further rise in LFT's and lipase.
03/18 ultrasound abdomen dilated intra and extrahepatic bile duct. Postcholecystectomy.
03/20- MRCP-1. No choledocholithiasis 2. Bile duct dilatation may be secondary to the previous cholecystectomy.3. Mild ascites and inflammatory fat stranding in the upper abdomen most in keeping with the provided history of pancreatitis.4. Colonic
diverticulosis.5. Small bilateral pleural effusions and bibasilar atelectasis.
03/21- EUS-no pathology panc head or body, dilation CBD 15 mm, small stone CBD no pathology of ampulla
03/21 ERCP- The common bile duct was moderately dilated. The biliary tree was swept and sludge was found.
-- Acute pancreatitis- ETOH vs stone s/p EUS/ERCP with small stone with removal
-- Elevated liver test
-- Leukocytosis
plan
s/p EUS/ERCP with small stone removal but likely not cause of symptoms ? passed larger stone vs other no other pathology noted on EUS
improved LFT trend
clear diet will advance diet to low fat
remains on empirical antibiotic started by medical team
pain management as per medical team
hepatitis panel neg
updated family at bedside
Subjective
Subjective
Date of Service: March 22, 2024
03/20 brown stool, on clear diet pain improving feeling better
Objective
Data Reviewed
Laboratory Data:
Laboratory Results
03/22/24 06:03
Laboratory Results
Total Bilirubin 1.8 mg/dl (0.2-1.3) H D 03/21/24 06:23
AST 469 U/L (14-36) H 03/21/24 06:23
ALT 877 U/L (0-35) H* 03/21/24 06:23
Alkaline Phosphatase 173 U/L (38-126) H 03/21/24 06:23
Lipase 213 U/L (23-300) 03/21/24 06:23
Vital Signs and I&O:
Vital Signs
Temp Pulse Resp BP Pulse Ox
99.6 F 80 16 130/77 93
03/22/24 03:08 03/22/24 03:08 03/22/24 03:08 03/22/24 03:08 03/22/24 03:08
I&O
03/21/24 03/22/24 03/23/24
06:59 06:59 06:59
Intake Total 1100 / 1100 2210 / 2210
Balance 1100 / 1100 2210 / 2210
Physical Exam
Physical Exam
HEENT: Anicteric
Cardiology: Normal Sinus Rhythm
Pulmonary: Clear
GI: Soft, Non Distended and Non Tender
Extremities: No Edema
Neuro: Non Focal
[2024-03-22 07:05] LABS: ALT (SGPT) 647 U/L (0-35); AST (SGOT) 341 U/L (14-36); Albumin 2.8 g/dl (3.5-5.0); Alkaline Phosphatase 216 U/L (38-126); Blood Urea Nitrogen 16 mg/dl (7-17); Calcium 8.1 mg/dl (8.4-10.2); Carbon Dioxide 25 mmol/L (22-30); Chloride 108 mmol/L (98-107); Estimated Creatinine Clearance 86 ml/min; Glucose 88 mg/dl (70-99); Potassium 3.6 mmol/L (3.5-5.1); Sodium 138 mmol/L (135-145); Total Bilirubin 1.6 mg/dl (0.2-1.3); Total Protein 5.2 g/dl (6.3-8.2); eGFR > 60.00
[2024-03-22 07:35] VITALS: BP 119/74
[2024-03-22] MEDS: HEPARIN 5000 UNITS SC ×3 (08:02→23:11)
[2024-03-22] MEDS: LASIX 40 MG IV (09:49)
--- NOTE | 2024-03-22 10:15 | W.PN.HOSP.TC ---
Today's Communication/Plan
-
Continue with antibiotic from the day
Continue with diet
Incentive spirometry and start on IV Lasix
Mobilize patient
Assessment / Plan
Assessment / Plan
#Severe Sepsis
SIRS from severe Pancreatitis versus biliary sepsis.
Afebrile, improving leukocytosis
MRCP shows ductal dilatation but no stone; status post prior cholecystectomy
S/p EUS and ERCP. Small 6 common bile duct stone noted.
Slow improvement in LFTs noted unclear if it is related to small stone in the CBD or other process.
GI following.
Tolerating diet.
Antibiotics day 4-with the ERCP s/p sweep of sludge will continue antibiotics for another day and discontinue if no signs of infection.
#Acute pancreatitis
# cholestatic hepatitis picture
-lfts trending down
- MRCP without choledocholithiasis
-Hep panel neg
-triglycerides level : 116
# Hypoxia-suspect sec to pleural effusions and atx . CXR noted . Wt increase noted . Clinically no lower extremity edema no JVD. No prior history of CHF. Encourage incentive spirometry and out of bed to the chair. Start on IV lasix and follow wt
and O2 needs.
DVT ppx hep
Full code
Anticipated Discharge: 24 - 48 hours
Subjective/Interval History
-
Date of Service: March 22, 2024
She feels trouble with dry cough which is intermittent. Not short of breath at rest. Requiring 5 L of oxygen via nasal cannula. No chest pain.
Improved abdominal pain. No nausea vomiting. Patient currently on a solid diet which she seems to be tolerating.
Objective Data
-
Labs:
Laboratory Results
03/22/24
06:03
WBC 9.8
Hgb 12.0
Hct 34.5 L
Plt Count 149
Sodium 138
Potassium 3.6
Chloride 108 H
Carbon Dioxide 25
BUN 16
Creatinine 0.5 L
Glucose 88
Calcium 8.1 L
Total Bilirubin 1.6 H
AST 341 H
ALT 647 H*
Alkaline Phosphatase 216 H
Vital Signs:
Vital Signs
Temp Pulse Resp BP Pulse Ox
98.2 F 86 16 120/84 94
03/22/24 07:35 03/22/24 09:49 03/22/24 07:35 03/22/24 09:49 03/22/24 07:35
I&O
03/21/24 03/22/24 03/23/24
06:59 06:59 06:59
Intake Total 1100 / 1100 2210 / 2210
Balance 1100 / 1100 0 / 2210
Review of Systems
-
EENT: Denies Sore Throat
Neuro: Denies Dizzy
Physical Exam
-
General: No Apparent Distress
HEENT: Moist Mucous Membranes
Respiratory: Non Labored Respirations and Decreased Breath Sounds (at bases); Negative Wheezes, Crackles or Accessory Resp Muscle Use
Cardiac: Regular Rhythm and S1/S2; Negative Tachycardic
GI: Soft, Nontender, Nondistended and Normal Bowel Sounds
Neuro: AO x 3
Data Reviewed
-
Labs: Labs Reviewed by me
[2024-03-22 10:18] LABS: COVID-19 Antigen Negative (Negative)
--- NOTE | 2024-03-22 15:41 | CM ---
CM reviewed chart, patient remains on antibiotics and O2. Per PT, no skilled need. CM will continue to follow for discharge planning needs.
plan; home no needs, watch for home O2 needs.
[2024-03-22] MEDS: ZOFRAN 4 MG IV (19:54)
[2024-03-22 23:45] VITALS: BP 103/57
[2024-03-23 00:02] VITALS: BP 103/57
--- NOTE | 2024-03-23 03:52 | DOWNTIME ---
There was a [employer] Client Inventory Auditor Downtime on 03/22/2024 from 0100 to 03/23/2024 at 0300. Downtime documentation of patient's care, including medication administrations, has been reconciled in the electronic record per guidelines. Refer to the
patient's paper chart under the miscellaneous tab to see printed paper medication records and downtime forms.
[2024-03-23] MEDS: FLAGYL 500 MG 100 IV ×3 (05:21→22:28)
[2024-03-23] MEDS: STERILE WATER FOR INJECTION 20 ML IV (05:21)
[2024-03-23] MEDS: ROCEPHIN 2000 MG IV (05:21)
[2024-03-23 05:55] VITALS: BMI 27.4
[2024-03-23 05:59] LABS: Hematocrit 36.3 % (37.0-47.0); Hemoglobin 12.5 g/dL (12.0-16.0); Mean Corp Hgb Conc. 34.4 g/dL (33.0-37.0); Mean Corpuscular Hgb 31.1 pg (27.0-31.0); Mean Corpuscular Volume 90.3 fL (81.0-99.0); Mean Platelet Volume 10.9 fL (7.4-10.4); Platelet Count 180 10^3/uL (130-400); Red Blood Cell Count 4.02 10^6/uL (4.20-5.40); Red Cell Dist. Width 12.8 % (11.5-14.5); White Blood Cell Count 7.9 10^3/uL (4.8-10.8)
[2024-03-23] MEDS: ROBITUSSIN 200 MG PO (06:10)
[2024-03-23 06:27] LABS: ALT (SGPT) 505 U/L (0-35); AST (SGOT) 169 U/L (14-36); Albumin 2.7 g/dl (3.5-5.0); Alkaline Phosphatase 189 U/L (38-126); Blood Urea Nitrogen 13 mg/dl (7-17); Calcium 8.1 mg/dl (8.4-10.2); Carbon Dioxide 31 mmol/L (22-30); Chloride 102 mmol/L (98-107); Estimated Creatinine Clearance 84 ml/min; Glucose 95 mg/dl (70-99); Potassium 3.5 mmol/L (3.5-5.1); Sodium 138 mmol/L (135-145); eGFR > 60.00
[2024-03-23 07:40] VITALS: BP 118/65
[2024-03-23] MEDS: HEPARIN 5000 UNITS SC (08:23)
[2024-03-23] MEDS: LASIX 40 MG IV (08:24)
[2024-03-23] MEDS: ZOFRAN 4 MG IV (10:58)
--- NOTE | 2024-03-23 13:21 | W.PN.HOSP.TC ---
Today's Communication/Plan
-
DC planning
Assessment / Plan
Assessment / Plan
#Severe Sepsis
SIRS from severe Pancreatitis versus biliary sepsis.
Afebrile, improving leukocytosis
MRCP shows ductal dilatation but no stone; status post prior cholecystectomy
S/p EUS and ERCP. Small 6 common bile duct stone noted.Possible passed bigger stone per GI
Slow improvement in LFTs noted
GI signed off
Tolerating diet.
Antibiotics day 5-with the ERCP s/p sweep of sludge will continue antibiotics for today and discontinue .
#Acute pancreatitis
# cholestatic hepatitis picture
-lfts trending down
- MRCP without choledocholithiasis
-Hep panel neg
-triglycerides level : 116
# Hypoxia-suspect sec to pleural effusions and atx . CXR noted . Wt increase noted . Clinically no lower extremity edema no JVD. No prior history of CHF. Encourage incentive spirometry and out of bed to the chair. Started on IV lasix -Improving
weight and decreasing oxygen need.
DC home in a.m. if improved weight and oxygenation.
DVT ppx hep
Full code
Anticipated Discharge: Within 24 hours
Subjective/Interval History
-
Date of Service: March 23, 2024
Improving of weight and improving breathing. She had a bit of nausea today but resolved with medication.
Denies much of abdominal pain.
No fever or chills.
Abdo subq brusing from heparin injections
Objective Data
-
Labs:
Laboratory Results
03/23/24
04:34
WBC 7.9
Hgb 12.5
Hct 36.3 L
Plt Count 180 D
Sodium 138
Potassium 3.5
Chloride 102
Carbon Dioxide 31 H
BUN 13
Creatinine 0.6
Glucose 95
Calcium 8.1 L
Total Bilirubin 1.0
AST 169 H
ALT 505 H*
Alkaline Phosphatase 189 H
Vital Signs:
Vital Signs
Temp Pulse Resp BP Pulse Ox
97.6 F 62 16 118/65 93
03/23/24 07:40 03/23/24 08:24 03/23/24 07:40 03/23/24 08:24 03/23/24 07:40
I&O
03/22/24 03/23/24 03/24/24
06:59 06:59 06:59
Intake Total 2210 / 2210 2410 / 2410
Output Total 3705 / 3705
Balance 2210 / 2210 -1295 / -1295
Review of Systems
-
Constitutional: Denies Fever
EENT: Denies Sore Throat
Cardiac: Denies Chest Pain
Neuro: Denies Dizzy or Headache
Physical Exam
-
General: No Apparent Distress
HEENT: Moist Mucous Membranes
Respiratory: Clear to Auscultation and Decreased Breath Sounds (improved air entry at bases); Negative Wheezes or Crackles
Cardiac: Regular Rhythm and S1/S2
GI: Soft, Nontender and Other (bruising abdomen from heparin noted)
Neuro: AO x 3
Psych: Calm
Data Reviewed
-
Labs: Labs Reviewed by me
[2024-03-23 15:55] VITALS: BP 107/68
--- NOTE | 2024-03-23 16:07 | CM ---
Reviewed the chart notes and spoke with the patient at the bedside. The patient continues on supplement 02 @ 3L/min. CM continues to be available to patient/family and is monitoring medical plan for needs at discharge.
Plan: Discharge plans will depend on whether patient is able to wean from supplemental O2.
[2024-03-23] MEDS: SENOKOT-S 1 TABLET PO (22:28)
[2024-03-23 23:25] VITALS: BP 133/71
[2024-03-24 05:15] VITALS: BMI 26.3
[2024-03-24 05:26] LABS: Hemoglobin 12.9 g/dL (12.0-16.0); Mean Corp Hgb Conc. 34.9 g/dL (33.0-37.0); Mean Corpuscular Hgb 30.9 pg (27.0-31.0); Mean Corpuscular Volume 88.7 fL (81.0-99.0); Mean Platelet Volume 10.4 fL (7.4-10.4); Platelet Count 177 10^3/uL (130-400); Red Blood Cell Count 4.17 10^6/uL (4.20-5.40); Red Cell Dist. Width 12.9 % (11.5-14.5); White Blood Cell Count 8.1 10^3/uL (4.8-10.8)
[2024-03-24] MEDS: ROCEPHIN 2000 MG IV (05:39)
[2024-03-24] MEDS: FLAGYL 500 MG 100 IV (05:39)
[2024-03-24] MEDS: STERILE WATER FOR INJECTION 20 ML IV (05:39)
[2024-03-24 06:05] LABS: ALT (SGPT) 437 U/L (0-35); AST (SGOT) 127 U/L (14-36); Albumin 2.9 g/dl (3.5-5.0); Alkaline Phosphatase 181 U/L (38-126); Blood Urea Nitrogen 10 mg/dl (7-17); Calcium 8.2 mg/dl (8.4-10.2); Carbon Dioxide 32 mmol/L (22-30); Chloride 99 mmol/L (98-107); Estimated Creatinine Clearance 83 ml/min; Glucose 107 mg/dl (70-99); Potassium 3.2 mmol/L (3.5-5.1); Sodium 136 mmol/L (135-145); Total Protein 5.3 g/dl (6.3-8.2); eGFR > 60.00
[2024-03-24 07:00] VITALS: BP 145/75
[2024-03-24] MEDS: ZOFRAN 4 MG IV (08:36)
[2024-03-24] MEDS: LASIX 40 MG IV (08:36)
--- NOTE | 2024-03-24 11:01 | CM ---
Addendum entered by Nicole Amaya RN 03/24/24 13:12:
Reviewed the chart notes. Patient now on room air. CM continues to be available to patient/family and is monitoring medical plan for needs at discharge.
Plan: Discharge to home today. No needs identified at this time.
Original Note:
Reviewed the chart notes. IMM signed and placed on the chart.
[2024-03-24] MEDS: KCL 40 MEQ PO (11:54)
--- NOTE | 2024-03-24 12:00 | W.PN.HOSP.TC ---
Today's Communication/Plan
-
DC further antibiotics
Check oxygen with exertion and rest
DC planning
Assessment / Plan
Assessment / Plan
#Severe Sepsis
SIRS from severe Pancreatitis versus biliary sepsis.
Afebrile, improving leukocytosis
MRCP shows ductal dilatation but no stone; status post prior cholecystectomy
S/p EUS and ERCP. Small 6 common bile duct stone noted.Possible passed bigger stone per GI
Slow improvement in LFTs noted-normalized bilirubin
GI signed off
Tolerating diet.
Finish 5 days of antibiotics-hold further antibiotics..
#Acute pancreatitis
# cholestatic hepatitis picture
-lfts trending down
- MRCP without choledocholithiasis
-Hep panel neg
-triglycerides level : 116
-Tolerating diet.
# Hypokalemia - replete
# Hypoxia-suspect sec to pleural effusions and atx . CXR noted . Wt increase noted . Clinically no lower extremity edema no JVD. No prior history of CHF. Encourage incentive spirometry and out of bed to the chair. Started on IV lasix -Improving
weight and decreasing oxygen need.
Patient does see a vascular tech for diagnosis of COPD but does not require inhalers or oxygen at home.
With improved weight check oxygen at room air and with exertion.
DC planning
DVT ppx hep
Full code
Anticipated Discharge: Today
Subjective/Interval History
-
Date of Service: March 24, 2024
She noticed that she was feeling nauseous whenever she was getting Flagyl.
No abdominal pain. Tolerating diet otherwise.
Denies any cough or shortness of breath. Improved weight with Lasix.
Objective Data
-
Labs:
Laboratory Results
03/24/24
05:17
WBC 8.1
Hgb 12.9
Hct 37.0
Plt Count 177
Sodium 136
Potassium 3.2 L
Chloride 99
Carbon Dioxide 32 H
BUN 10
Creatinine 0.5 L
Glucose 107 H
Calcium 8.2 L
Total Bilirubin 1.0
AST 127 H
ALT 437 H
Alkaline Phosphatase 181 H
Vital Signs:
Vital Signs
Temp Pulse Resp BP Pulse Ox
97.9 F 71 14 145/75 93
03/24/24 07:00 03/24/24 07:00 03/24/24 07:00 03/24/24 07:00 03/24/24 11:13
I&O
03/23/24 03/24/24 03/25/24
06:59 06:59 06:59
Intake Total 2410 / 2410 2760 / 2760
Output Total 3705 / 3705 3580 / 3580
Balance -1295 / -1295 -820 / -820
Review of Systems
-
Constitutional: Denies Fever
EENT: Denies Sore Throat
Respiratory: Denies Cough or Trouble Breathing
Cardiac: Denies Chest Pain
Neuro: Denies Dizzy
Physical Exam
-
General: No Apparent Distress
HEENT: Moist Mucous Membranes
Respiratory: Clear to Auscultation; Negative Wheezes or Crackles
Cardiac: Regular Rhythm and S1/S2
GI: Soft
Neuro: AO x 3
Psych: Calm
Data Reviewed
-
Labs: Labs Reviewed by me
--- NOTE | 2024-03-24 12:41 | W.DS.TRANS ---
DC Summary - Network Support Engineer
-
Discharge Instructions:
Discharge Diagnosis/Procedures Acute pancreatitis
Choledocholithiasis
Diet Low Fat
Additional Diets low fat for a week and resume your prior diet
Activity As tolerated
Driving Restrictions As prior to admission
Bathing Restrictions None
Blood Work CMP blood work in one week -arrange through your
PCP
Instructions:
Stand-Alone Forms:
Changes to Home Medications: Yes
Discharge Medications:
DC Medications w/original date entered in [employer]
atorvastatin 40 mg tablet 40 mg PO HS 03/18/24
calcium carbonate 500 mg PO DAILY 03/18/24
cholecalciferol (vitamin D3) 25 mcg (1,000 unit) tablet (Vitamin D3) 25 mcg PO DAILY 03/18/24
estradiol 10 mcg vaginal tablet (Yuvafem) 10 mcg vaginal MOTH 03/18/24
omega-3 acid ethyl esters 1 gram capsule 1 g PO BID 03/18/24
Home Medication Changes
Home medication-Lipitor
Pending Results: No
[2024-03-24 13:02] VITALS: BP 127/75
== END 2024-03-24 13:43 | disposition home or self-care (01) | DRG 871 ==
LOC: 2 NORTH 23:13
PROVIDERS: Internal Medicine; Internal Medicine Gastroenterology; ADMITTING PHYSICIAN Internal Medicine; ATTENDING PHYSICIAN Internal Medicine; CONSULT PHYSICIAN Internal Medicine Gastroenterology; EMERGENCY PHYSICIAN Emergency Medicine
PROC: 0FCD8ZZ Extirpation of Matter from Pancreatic Duct, Via Natural or Artificial Opening Endoscopic (ICD-10-PCS; 2024-03-21)
PROC: 0FC78ZZ Extirpation of Matter from Common Hepatic Duct, Via Natural or Artificial Opening Endoscopic (ICD-10-PCS; 2024-03-21)
DX: A41.9 Sepsis, unspecified organism (principal); K85.90 Acute pancreatitis without necrosis or infection, unspecified; Z87.891 Personal history of nicotine dependence; R65.20 Severe sepsis without septic shock; E87.6 Hypokalemia; K80.50 Calculus of bile duct without cholangitis or cholecystitis without obstruction
CPT/HCPCS: 71045; 74181; 74330; 76000; 76700; 80053; 80061; 82077; 83690; 84484; 85025; 85027; 86704; 86706; 86803; 87040; 87070; 87340; 87811; 93005; 96361; 96365; 96367; 96375; 99285; C1769